=== PATIENT | male | born 1995 | race Caucasian/White ===

== ENCOUNTER 2024-03-31 15:57 | Emergency (ER) | payer SELFPAY ==
[~2024-03-31] VITALS: Ht 175.3 cm; Wt 81.6 kg
[2024-03-31 16:00] VITALS: PULSE 96
[2024-03-31 16:06] VITALS: BP 143/94; RESP 16; TEMP 98.1; O2SAT 99
[2024-03-31] MEDS ORDERED: BACI28.432 TP (17:31)
== END 2024-03-31 18:58 | disposition left against medical advice (07) ==
LOC: ER 15:57
DX: M79.672 Pain in left foot (principal)
CPT/HCPCS: 73630; 99283

== ENCOUNTER 2024-08-01 08:52 | Emergency (ER) | payer SELFPAY ==
[~2024-08-01] VITALS: Ht 175.3 cm; Wt 75.0 kg
[2024-08-01 09:09] VITALS: BP 127/83; TEMP 98.5; O2SAT 99
[2024-08-01 09:13] VITALS: PULSE 92; RESP 16; O2SAT 97
[2024-08-01] MEDS: KETOROLAC 15MG/ML VIAL IM ONE (10:00)
== END 2024-08-01 11:30 | disposition home or self-care (01) ==
LOC: ER 08:52
DX: M25.561 Pain in right knee (principal)
CPT/HCPCS: 99283; 73562; J1885